=== PATIENT | male | born 1970 | race Caucasian/White ===

== ENCOUNTER 2021-09-11 13:59 | Emergency (ER) | payer MEDICARE, SELFPAY | END 2021-09-11 15:05 | disposition home or self-care (01) | LOC: NAV ERS 13:59 | DX: M19.071 Primary osteoarthritis, right ankle and foot (principal); M06.9 Rheumatoid arthritis, unspecified; G62.9 Polyneuropathy, unspecified; Z79.899 Other long term (current) drug therapy | CPT/HCPCS: 99283 ==